=== PATIENT | male | born 1975 | race Caucasian/White ===

== ENCOUNTER → 2018-12-09 | Outpatient (CLI) | payer BC ==
--- NOTE | 2018-12-09 13:06 | RADIOLOGY REPORT (SQ) ---
EXAM DESCRIPTION: MRI LUMBAR SPINE WITHOUT COMPLETED DATE/TIME: 12/09/2018 11:59 am REASON FOR STUDY: (M54.5)LOW BACK PAIN M54.5 LOW BACK PAIN COMPARISON: None. TECHNIQUE: Sagittal and Axial imaging includes T1, T2, STIR and gradient echo sequences. Coronal T2/ HASTE imaging. LIMITATIONS: None. FINDINGS: VISUALIZED UPPER ABDOMEN: Limited evaluation. No acute or suspicious findings suggested. SEGMENTATION: No transitional anatomy. The lowest well-developed disc space is labeled L5-S1. ALIGNMENT: Anatomic. VERTEBRAE: Intact. BONE MARROW: Normal. No marrow replacement or reactive changes. DISC SIGNAL: L4-5 and L5-S1 degenerative disc changes with loss of signal and height. Detailed below . POSTERIOR ELEMENTS: Limited assessment for pars defect. Facet arthropathy in the lowest segments. HARDWARE: None in the spine. CORD AND CONUS: Normal in size and signal intensity. Conus at the appropriate level. SOFT TISSUES: No aortic aneurysm seen. No bulky retroperitoneal adenopathy or mass. No paraspinal mas s or fluid. L1-L2: No significant spinal stenosis or exit foraminal stenosis. L2-L3: No significant spinal stenosis or exit foraminal stenosis. L3-L4: No significant spinal stenosis or exit foraminal stenosis. L4-L5: Diminished signal with mild disc bulging. Superimposed central focal disc hernia. Minimal in ferior extrusion. Mild mass effect on the bilateral L5 nerve roots. Facet overgrowth with ligament thickening and mild -moderate transverse dimension central canal narrowing. Patent neural foramina. L5-S1: Broad posterior disc bulging without mass effect on the S1 nerve roots. Mild facet arthropath y. No central stenosis. Mild foraminal narrowing which is slightly worse on the right. LOWER THORACIC: Incompletely imaged. No stenosis seen. SACRUM: Visualized upper sacrum intact. OTHER: No other significant findings. IMPRESSION: 1. L4-5 spondylosis, as above. TECHNICAL DOCUMENTATION: JOB ID: [id number] [employer]- All Rights Reserved Reading location - IP/workstation name: [email or web address]
== END ==
LOC: RAD 11:14
PROVIDERS: ATTEND Orthopaedic Surgery
DX: M47.896 Other spondylosis, lumbar region (principal); M54.5 Low back pain
CPT/HCPCS: 72148

== ENCOUNTER 2019-04-26 15:29 | Emergency (ER) | payer BC ==
--- NOTE | 2019-04-26 16:28 | ER Document Report ---
ED Medical Screen (RME) - General Chief Complaint: Abdominal Pain Stated Complaint: LEFT SIDE PAIN Time Seen by Provider: 04/26/19 16:22 Primary Care Provider: ÓSCAR OLVERA MD [Primary Care Provider] - Follow up as needed Mode of Arrival: Ambulatory Information source: Patient Notes: 44-year-old male with history of diverticulitis presents the emergency [facility] with complaints of diarrhea left lower quad left flank pain since yesterday. Denies fever vomiting. Denies hematuria. Denies history of kidney stones. Reports he was diagnosed with diverticulitis 1 year ago at [facility]. I have greeted and performed a rapid initial assessment of this patient. A comprehensive ED assessment and evaluation of the patient, analysis of test results and completion of the medical decision making process will be conducted by additional ED providers. TRAVEL OUTSIDE OF THE [place] IN LAST 30 DAYS: No - Related Data Allergies/Adverse Reactions: No Known Allergies Allergy (Verified 04/26/19 16:20) Past Medical History - Social History Frequency of alcohol use: Occasional Drug Abuse: None Physical Exam - Vital signs Vitals: Temp Pulse Resp BP Pulse Ox 97.9 F 84 18 147/85 H 95 04/26/19 15:38 04/26/19 15:38 04/26/19 15:38 04/26/19 15:38 04/26/19 15:38 Course - Vital Signs Vital signs: Temp Pulse Resp BP Pulse Ox 97.9 F 84 18 147/85 H 95 04/26/19 15:38 04/26/19 15:38 04/26/19 15:38 04/26/19 15:38 04/26/19 15:38 Doctor's Discharge - Discharge Referrals: ÓSCAR OLVERA MD [Primary Care Provider] - Follow up as needed
[2019-04-26 17:05] LABS: ABSOLUTE BASOPHILS # (AUTO) 0.1 10^3/uL (0.0-0.2); ABSOLUTE EOSINOPHILS # (AUTO) 0.1 10^3/uL (0.0-0.6); ABSOLUTE MONOCYTES (AUTO) 1.2 10^3/uL (0.1-1.4); ABSOLUTE NEUT (AUTO) 11.2 10^3/uL (1.7-8.2); BASOPHILS % (AUTO) 0.7 % (0-2); EOSINOPHILS % (AUTO) 0.5 % (0-6); HEMATOCRIT 45.2 % (37.9-51.0); HEMOGLOBIN 15.5 g/dL (13.5-17.0); LYMPHOCYTES % (AUTO) 13.5 % (13-45); MEAN CORPUSCULAR HGB CONC 34.4 g/dL (32.0-36.0); MEAN CORPUSCULAR VOLUME 87 fl (80-97); MONOCYTES % (AUTO) 8.5 % (3-13); PLATELET COUNT 247 10^3/uL (150-450); RED BLOOD COUNT 5.17 10^6/uL (4.35-5.55); RED CELL DISTRIBUTION WIDTH 13.7 % (11.5-14.0); SEGMENTED NEUTROPHILS % (AUTO) 76.8 % (42-78); TOTAL CELLS COUNTED % (AUTO) 100 %; WHITE BLOOD COUNT 14.5 10^3/uL (4.0-10.5)
[2019-04-26 17:21] LABS: APPEARANCE,URINE CLEAR; BILIRUBIN,URINE NEGATIVE (NEGATIVE); COLOR,URINE YELLOW; GLUCOSE, URINE NEGATIVE (NEGATIVE); KETONES,URINE NEGATIVE (NEGATIVE); LEUKOCYTE ESTERASE,URINE NEGATIVE (NEGATIVE); NITRITE,URINE NEGATIVE (NEGATIVE); PROTEIN,URINE NEGATIVE (NEGATIVE); URINE SPECIFIC GRAVITY 1.013; UROBILINOGEN,URINE NEGATIVE mg/dL (<2.0)
[2019-04-26 17:25] LABS: ALBUMIN 4.5 g/dL (3.5-5.0); ALKALINE PHOSPHATASE 84 U/L (38-126); ANION GAP 11 (5-19); ASPARTATE AMINO TRANSFERASE 18 U/L (17-59); BILIRUBIN,DIRECT 0.2 mg/dL (0.0-0.4); BILIRUBIN,TOTAL 0.8 mg/dL (0.2-1.3); BLOOD UREA NITROGEN 15 mg/dL (7-20); CALCIUM 9.5 mg/dL (8.4-10.2); CARBON DIOXIDE 29 mmol/L (22-30); CHLORIDE 99 mmol/L (98-107); GLUCOSE 83 mg/dL (75-110); POTASSIUM 4.2 mmol/L (3.6-5.0); TOTAL PROTEIN 7.8 g/dL (6.3-8.2)
--- NOTE | 2019-04-26 20:26 | ER Document Report ---
ED General - General Chief Complaint: Abdominal Pain Stated Complaint: LEFT SIDE PAIN Time Seen by Provider: 04/26/19 16:22 Primary Care Provider: ÓSCAR OLVERA MD [ASSOCIATE] - Follow up as needed Mode of Arrival: Ambulatory TRAVEL OUTSIDE OF THE [place] IN LAST 30 DAYS: No - HPI Notes: Patient is a 44-year-old male who presents to the emergency department for evaluation of left flank and left lower quadrant pain. It started yesterday morning. He states he had a little bit of stomach upset, took some Pepto- Bismol. He had 1 bowel movement that was dark but formed. He states that movement seems to make his pain worse, nothing seems to make it better. He denies any fevers or chills. No urinary symptoms. No wendy hematuria. He has been eating and drinking normally. He has a history of diverticulosis, as diagnosed on colonoscopy performed at [facility] about a year ago. He has no history of diverticulitis. - Related Data Allergies/Adverse Reactions: No Known Allergies Allergy (Verified 04/26/19 16:20) Home Medications: None Past Medical History - General Information source: Patient - Social History Smoking Status: Current Some Day Smoker Frequency of alcohol use: Occasional Drug Abuse: None Family History: Malignancy - Colon cancer in sister Patient has suicidal ideation: No Patient has homicidal ideation: No Review of Systems - Review of Systems Constitutional: No symptoms reported EENT: No symptoms reported Cardiovascular: No symptoms reported Respiratory: No symptoms reported Gastrointestinal: See HPI Genitourinary: No symptoms reported Musculoskeletal: No symptoms reported Skin: No symptoms reported Neurological/Psychological: No symptoms reported Physical Exam - Vital signs Vitals: Temp Pulse Resp BP Pulse Ox 97.9 F 84 18 147/85 H 95 04/26/19 15:38 04/26/19 15:38 04/26/19 15:38 04/26/19 15:38 04/26/19 15:38 - Notes Notes: Vital signs reviewed, please refer to chart. Head is normocephalic, atraumatic. Pupils equal round, reactive to light. Neck is supple without meningismus. Heart is regular rate and rhythm. Lungs are clear to auscultation bilaterally. Abdomen is soft, mildly tender in the left lower quadrant without rebound or guarding, normoactive bowel sounds throughout. He does have an umbilical hernia present, which is soft and nontender. No CVA tenderness. Extremities without cyanosis, clubbing. Posterior calves are nontender. Peripheral pulses are equal. Skin is warm and dry. Patient is awake, alert, neurological exam is nonfocal. Course - Re-evaluation Re-evalutation: 04/26/19 20:26 Patient presents to the emergency department for evaluation. Laboratory investigations were obtained. He is relatively comfortable here without any sort of intervention. He does have tenderness on exam. CT scan pending. Awaiting results. Patient is stable. 04/26/19 21:55 CT scan is consistent with a mild to moderate acute diverticulitis. Serial abdominal exams are nonsurgical. He is given Cipro and Flagyl. I do believe is appropriate to treat him as an outpatient initially. He is to follow-up closely with primary care, return to the ED with worsening. He is warned about not drinking any alcohol while taking Flagyl. - Vital Signs Vital signs: Temp Pulse Resp BP Pulse Ox 97.9 F 84 18 147/85 H 95 04/26/19 15:38 04/26/19 15:38 04/26/19 15:38 04/26/19 15:38 04/26/19 15:38 - Laboratory Result Diagrams: 04/26/19 16:38 04/26/19 16:38 Laboratory results interpreted by me: 04/26/19 04/26/19 16:38 16:39 WBC 14.5 H Absolute Neuts (auto) 11.2 H Urine Blood SMALL H - Diagnostic Test Radiology reviewed: Image reviewed, Reports reviewed Discharge - Discharge Clinical Impression: Left lower quadrant abdominal pain, Acute diverticulitis Condition: Stable Disposition: HOME, SELF-CARE Instructions: Ciprofloxacin ([facility]), Diverticulitis ([facility]), Low Residue Diet ([facility]), Metronidazole ([facility]) Additional Instructions: Please take all the antibiotics as prescribed until gone. Do not drink alcohol while taking the metronidazole. Follow-up with your primary care provider next week. If you develop increased pain, vomiting, fevers, or any other new or concerning symptoms, please return immediately to the emergency department for reevaluation. Referrals: ÓSCAR OLVERA MD [ASSOCIATE] - Follow up as needed
--- NOTE | 2019-04-26 21:52 | RADIOLOGY REPORT (SQ) ---
EXAM DESCRIPTION: CLINICAL HISTORY: 44 years Male LLQ pain, hx diverticulitis COMPARISON: None TECHNIQUE: Axial images with 100 mL of Omnipaque 350. Sagittal coronal reconstruction. This exam was performed according to our departmental dose-optimization program, which includes automated exposure control, adjustment of the mA and/or kV according to patient size and/or use of iterative reconstruction technique. FINDINGS: Lung bases, liver, spleen, pancreas, biliary system, adrenal glands, kidneys, aorta and para-aortic regions are unremarkable. Mild to moderate umbilical hernia with herniation of fat. There is thickening of the distal descending colon with surrounding edema. Mild diverticular formation. Mild stranding around the abnormal colon but no suspicious abscess. Prominent central stenosis at L4-5 and moderate to prominent at L5-S1. Bilateral pars defects at L5 with minimal spinal listhesis. CT of the pelvis demonstrates moderate sigmoid diverticulosis without acute diverticulitis. Urinary bladder contracted and unremarkable. Mildly enlarged prostate with prostatic stones. No free fluid or adenopathy. IMPRESSION: 1. Suspected acute diverticulitis in the distal descending colon. Mild to moderate severity. No abscess. 2. Moderate diverticular disease in the sigmoid colon and scattered diverticular disease in the right and transverse colon without acute diverticulitis in these areas. 3. Mild to moderate umbilical hernia with herniation of fat. 4. Stenosis at L4-5 and L5-S1. Pars defects at L5.
[2019-04-26] MEDS ORDERED: METRONIDAZOLE 250 MG TABLET PO ONE (21:54)
[2019-04-26] MEDS ORDERED: CIPROFLOXACIN HCL 500 MG TABLET PO ONE (21:54)
[2019-04-26] MEDS ORDERED: METRONIDAZOLE 500 MG TABLET ONE (22:25)
[2019-04-26 23:03] VITALS: BP 129/73
== END 2019-04-26 22:35 | disposition home or self-care (01) ==
LOC: ER 15:29
DX: K57.92 Diverticulitis of intestine, part unspecified, without perforation or abscess without bleeding (principal); K42.9 Umbilical hernia without obstruction or gangrene; R10.9 Unspecified abdominal pain; R10.32 Left lower quadrant pain; R10.814 Left lower quadrant abdominal tenderness; F17.200 Nicotine dependence, unspecified, uncomplicated
CPT/HCPCS: 99284; 36415; 85025; 80053; 81001; 74177; J3490